=== PATIENT | male | born 1960 | race African-American/Black ===

== ENCOUNTER 2019-08-26 17:23 | Emergency (ER) | payer MEDICAID ==
[~2019-08-26] VITALS: Ht 175.3 cm; Wt 160.0 kg
[2019-08-26] MEDS ORDERED: LIDOCAINE HCL/PF 1% 10 MG/ML 5ML VIAL IJ ONE (18:15)
[2019-08-26] MEDS ORDERED: BACITRACIN ZINC OINT UDPKT TOP ONE (18:15)
[2019-08-26 19:06] VITALS: BP 165/89
== END 2019-08-26 19:06 | disposition home or self-care (01) ==
LOC: ER 17:54
DX: L02.212 Cutaneous abscess of back [any part, except buttock and flank] (principal); I10 Essential (primary) hypertension; F41.9 Anxiety disorder, unspecified; F32.9 Major depressive disorder, single episode, unspecified; E03.9 Hypothyroidism, unspecified; Z86.19 Personal history of other infectious and parasitic diseases
CPT/HCPCS: 10060; 99283; J3490; Z7610

== ENCOUNTER 2019-08-28 15:10 | Emergency (ER) | payer MEDICAID ==
[~2019-08-28] VITALS: Ht 175.3 cm; Wt 165.0 kg
[2019-08-28] MEDS ORDERED: LIDOCAINE HCL 1% 20ML VIAL (Pyxis) INJ ONE (17:43)
[2019-08-28 18:00] VITALS: BP 187/84
== END 2019-08-28 18:00 | disposition home or self-care (01) ==
LOC: ER 15:10
DX: Z48.00 Encounter for change or removal of nonsurgical wound dressing (principal)
CPT/HCPCS: 99283; J3490

== ENCOUNTER 2019-08-30 15:01 | Emergency (ER) | payer MEDICAID ==
[~2019-08-30] VITALS: Ht 175.3 cm; Wt 150.0 kg
[2019-08-30] MEDS ORDERED: LIDOCAINE HCL/PF 1% 10 MG/ML 5ML VIAL IJ ONE (18:15)
[2019-08-30] MEDS ORDERED: BACITRACIN ZINC OINT UDPKT TOP ONE (18:15)
[2019-08-30] MEDS ORDERED: IBUPROFEN 600MG TABLET PO ONE (18:15)
[2019-08-30 20:03] VITALS: BP 168/82
== END 2019-08-30 20:06 | disposition home or self-care (01) ==
LOC: ER 15:01
DX: Z48.01 Encounter for change or removal of surgical wound dressing (principal); L02.413 Cutaneous abscess of right upper limb; F41.9 Anxiety disorder, unspecified; F32.9 Major depressive disorder, single episode, unspecified; I10 Essential (primary) hypertension; E03.9 Hypothyroidism, unspecified
CPT/HCPCS: 99283; A4217; J3490; Z7610

== ENCOUNTER 2019-09-01 10:34 | Emergency (ER) | payer MEDICAID ==
[~2019-09-01] VITALS: Ht 170.2 cm; Wt 154.0 kg
[2019-09-01 10:39] VITALS: BP 135/72
== END 2019-09-01 11:19 | disposition home or self-care (01) ==
LOC: ER 10:43
DX: L02.212 Cutaneous abscess of back [any part, except buttock and flank] (principal); F41.9 Anxiety disorder, unspecified; F32.9 Major depressive disorder, single episode, unspecified; I10 Essential (primary) hypertension; E03.9 Hypothyroidism, unspecified; F12.10 Cannabis abuse, uncomplicated; Z98.890 Other specified postprocedural states
CPT/HCPCS: 99282

== ENCOUNTER 2019-10-16 11:02 | Emergency (ER) | payer MEDICAID ==
[~2019-10-16] VITALS: Ht 175.3 cm; Wt 153.0 kg
[2019-10-16] MEDS ORDERED: SODIUM CHLORIDE 0.9% 1,000 ML IV ONE (15:00)
[2019-10-16] MEDS ORDERED: ONDANSETRON HCL 4MG/2ML INJ IV ONE (15:00)
[2019-10-16 15:52] LABS: BASOPHILS % 0.5 % (0.0-2.0); EOSINOPHILS % 0.2 % (0.0-5.0); HEMATOCRIT. 48.7 % (42.0-52.0); HEMOGLOBIN. 16.3 g/dL (14.0-18.0); LYMPHOCYTES % 21.4 % (20.0-50.0); MEAN CORPUSCULAR HEMOGLOBIN 30.3 pg (28.0-32.0); MEAN CORPUSCULAR VOLUME 90.6 fL (80.0-94.0); MEAN PLATELET VOLUME 8.4 fl (7.4-10.4); MONOCYTES % 5.9 % (2.0-8.0); PLATELET 312 x1000/uL (130-400); RED BLOOD CELL COUNT 5.37 mill/uL (4.7-6.1); RED CELL DISTRIBUTION WIDTH 16.3 % (11.6-14.6)
[2019-10-16 15:53] LABS: CHLORIDE 105 mEq/L (98-107)
[2019-10-16 16:04] LABS: T4 FREE 0.75 ng/dL (0.76-1.46)
[2019-10-16] MEDS ORDERED: CLONIDINE 0.2MG TABLET PO ONE (16:30)
[2019-10-16] MEDS ORDERED: METOCLOPRAMIDE HCL 10MG/2ML VIAL IV ONE (20:15)
[2019-10-16] MEDS ORDERED: KETOROLAC 30MG/ML VIAL IV ONE (21:00)
[2019-10-16 22:55] VITALS: BP 182/106
== END 2019-10-16 23:07 | disposition home or self-care (01) ==
LOC: ER 11:02
DX: A05.9 Bacterial foodborne intoxication, unspecified (principal); F41.9 Anxiety disorder, unspecified; F32.9 Major depressive disorder, single episode, unspecified; I10 Essential (primary) hypertension; E03.9 Hypothyroidism, unspecified; F12.10 Cannabis abuse, uncomplicated; Z86.19 Personal history of other infectious and parasitic diseases
CPT/HCPCS: 36415; 71045; 80053; 83520; 83605; 83690; 83880; 84439; 84484; 85025; 93005; 96361; 96374; 96375; 99284; J1885; J2405; J2765; J7030

== ENCOUNTER 2022-11-29 14:36 | Emergency (ER) | payer MEDICAID ==
[~2022-11-29] VITALS: Ht 175.3 cm; Wt 163.0 kg
[2022-11-29] MEDS ORDERED: LEVO50TA8 PO (15:42)
[2022-11-29] MEDS ORDERED: ALLO100T PO (15:42)
[2022-11-29] MEDS ORDERED: LOSA100T32 PO (15:42)
[2022-11-29] MEDS ORDERED: AMLO10TA80 PO (15:42)
[2022-11-29] MEDS ORDERED: LEVO200T8 PO (15:42)
[2022-11-29 16:27] VITALS: BP 148/89
== END 2022-11-29 16:28 | disposition home or self-care (01) ==
LOC: ER 14:36
DX: I10 Essential (primary) hypertension (principal); F12.10 Cannabis abuse, uncomplicated; Z98.890 Other specified postprocedural states; Z86.39 Personal history of other endocrine, nutritional and metabolic disease
CPT/HCPCS: 99281

== ENCOUNTER 2025-10-13 15:39 | Emergency (ER) | payer MEDICAID, MEDICARE, OTHER ==
[~2025-10-13] VITALS: Ht 175.3 cm; Wt 158.0 kg
[~2025-10-13 15:39] MED LIST: ALLO100T PO; AMLO10TA80 PO; LEVO200T8 PO; LEVO50TA8 PO; LOSA100T33 PO
[2025-10-13 16:02] VITALS: BP 148/84; TEMP 36.7; O2SAT 95
[2025-10-13 16:14] VITALS: PULSE 79; RESP 18; O2SAT 96
[2025-10-13] MEDS ORDERED: IBUP-2030 MT (18:36)
[2025-10-13] MEDS ORDERED: CEPH500C2 MT (18:36)
[2025-10-13] MEDS ORDERED: SULF1TAB44 MT (18:36)
== END 2025-10-13 18:56 | disposition home or self-care (01) ==
LOC: ER 15:39
DX: L02.212 Cutaneous abscess of back [any part, except buttock and flank] (principal); E03.8 Other specified hypothyroidism; E78.00 Pure hypercholesterolemia, unspecified; I10 Essential (primary) hypertension; Z79.899 Other long term (current) drug therapy
CPT/HCPCS: 99283